=== PATIENT | female | born 1970 | race Caucasian/White ===

== ENCOUNTER 2020-08-18 13:34 | Observation (INO) ==
[2020-08-18] MEDS ORDERED: Aspirin 81 MG TAB.CHEW PO ONE (14:02)
[2020-08-18 15:26] LABS: Basophils % 0.5 %; Eosinophils # 0.1 K/mcL (0.0-0.6); Eosinophils % 1.2 %; Hematocrit 38.1 % (35.3-44.9); Hemoglobin 12.8 g/dL (11.5-15.4); Immature Granulocytes % 0.3 % (0-4); Lymphocytes % 27.8 %; Mean Corpuscular HGB Conc 33.6 g/dL (31.6-35.5); Mean Corpuscular Hemoglobin 30.4 pg (28.0-33.3); Mean Corpuscular Volume 90.5 fL (83.0-100.0); Mean Platelet Volume 9.7 fL (9.4-12.4); Monocytes # 0.4 K/mcL (0.0-1.3); Monocytes % 5.2 %; Neutrophils # 4.8 K/mcL (1.6-8.9); Platelet Count 310 K/mcL (140-400); Red Blood Count 4.21 M/mcL (3.82-4.97); Red Cell Distribution Width 11.7 % (11.5-14.5); White Blood Count 7.3 K/mcL (4.3-11.1)
[2020-08-18 15:35] LABS: INR 1.1; Prothrombin Time 12.7 Seconds (9.4-12.1)
[2020-08-18 15:38] LABS: Activated Partial Thrombo Time 33.1 Seconds (26.0-36.0)
[2020-08-18 15:53] LABS: BUN/Creatinine Ratio 11 (6-26); Blood Urea Nitrogen 8 mg/dL (6-20); Calcium 9.7 mg/dL (8.6-10.3); Carbon Dioxide 24 mEq/L (23-29); Chloride 109 mEq/L (98-107); Glucose 105 mg/dL (70-105); Osmolality,Calculated 289 (280-300); Potassium 4.5 mEq/L (3.5-5.1); Sodium 140 mEq/L (136-145); Troponin I < 0.03 ng/mL (< 0.04); eGFR For African Americans > 60 (> 60); eGFR For Non-African Americans > 60 (> 60)
[2020-08-18] MEDS ORDERED: Naloxone 0.4 MG/ML INJ IVP PRN ×2 (17:39→17:49)
[2020-08-18] MEDS ORDERED: Ondansetron 4 MG/2 ML VIAL IVP PRN (17:49)
[2020-08-18] MEDS ORDERED: *HR* HYDROcodone/Acet 5/325 mg TABLET PO PRN (17:49)
[2020-08-18] MEDS ORDERED: Acetaminophen 325 MG TABLET PO PRN (17:49)
[2020-08-18] MEDS ORDERED: *HR* LORazepam 0.5 MG TABLET PO PRN (19:22)
[2020-08-18] MEDS: BuPROPion SR (12 HR) 150 MG TABLET PO SCH (19:40)
[2020-08-18] MEDS ORDERED: Ipratropium/Albuterol Neb 3 ML IH PRN (21:14)
[2020-08-19 00:51] LABS: Basophils # 0.1 K/mcL (0.0-0.2); Basophils % 0.7 %; Eosinophils # 0.1 K/mcL (0.0-0.6); Eosinophils % 1.3 %; Hematocrit 37.3 % (35.3-44.9); Hemoglobin 12.3 g/dL (11.5-15.4); Immature Granulocytes % 0.3 % (0-4); Lymphocytes % 39.8 %; Mean Corpuscular Hemoglobin 30.5 pg (28.0-33.3); Mean Corpuscular Volume 92.6 fL (83.0-100.0); Mean Platelet Volume 9.6 fL (9.4-12.4); Monocytes # 0.4 K/mcL (0.0-1.3); Monocytes % 5.9 %; Neutrophils # 3.9 K/mcL (1.6-8.9); Platelet Count 306 K/mcL (140-400); Red Blood Count 4.03 M/mcL (3.82-4.97); Red Cell Distribution Width 11.7 % (11.5-14.5); White Blood Count 7.4 K/mcL (4.3-11.1)
[2020-08-19 00:58] LABS: INR 1.1; Prothrombin Time 12.7 Seconds (9.4-12.1)
[2020-08-19 01:09] LABS: Alanine Aminotransferase 11 Units/L (7-52); Albumin 4.1 g/dL (3.5-5.7); Albumin/Globulin Ratio 1.6 (1.1-2.2); Alkaline Phosphatase 94 Units/L (34-104); Aspartate Amino Transferase 9 Units/L (13-39); BUN/Creatinine Ratio 12 (6-26); Bilirubin,Total 0.7 mg/dL (0.3-1.0); Blood Urea Nitrogen 9 mg/dL (6-20); Calcium 9.3 mg/dL (8.6-10.3); Carbon Dioxide 31 mEq/L (23-29); Chloride 107 mEq/L (98-107); Chol/HDL Ratio 3.8 (0-4.9); Cholesterol 141 mg/dL (< 200); Globulin 2.5 g/dL (2.4-3.5); Glucose 104 mg/dL (70-105); HDL Cholesterol 37 mg/dL (40-59); LDL Cholesterol,Calculated 63 mg/dL (< 100); Osmolality,Calculated 297 (280-300); Phosphorous 4.2 mg/dL (2.7-4.5); Sodium 144 mEq/L (136-145); Total Protein 6.6 g/dL (6.4-8.9); Triglycerides 204 mg/dL (< 150); eGFR For African Americans > 60 (> 60); eGFR For Non-African Americans > 60 (> 60)
[2020-08-19 01:19] LABS: Estimated Average Glucose 114 mg/dl; Hemoglobin A1C 5.6 %
[2020-08-19] MEDS ORDERED: Regadenoson 0.4 MG/5 ML SYRINGE IVP ONE (05:45)
[2020-08-19 07:39] LABS: Troponin I < 0.03 ng/mL (< 0.04)
[2020-08-19] MEDS ORDERED: lisinopriL 5 MG TABLET PO SCH (09:00)
[2020-08-19] MEDS: Aspirin 81 MG TAB.CHEW PO SCH ×2 (09:07→14:24)
[2020-08-19] MEDS: BuPROPion SR (12 HR) 150 MG TABLET PO SCH (09:08)
[2020-08-19] MEDS: lisinopriL 10 MG TABLET PO SCH ×2 (09:08→09:50)
[2020-08-19] MEDS: Metoprolol XL (24 HR) Succ 25 MG TAB.ER.24H PO SCH ×2 (09:08→14:23)
[2020-08-19] MEDS ORDERED: Isosorbide MONOnitrate (24 HR) 30 MG TAB.ER.24H PO SCH (14:30)
[2020-08-19 15:14] VITALS: BP 147/96
== END 2020-08-19 18:21 | disposition home or self-care (01) ==
LOC: SUATTDRO → 3BNU 13:34 → EMEROOARM 13:34 → SUATTDRO 17:54 → 3BNU 18:22
PROVIDERS: ADMIT Internal Medicine; ATTEND Internal Medicine